=== PATIENT | male | born 1935 | race Caucasian/White ===

== ENCOUNTER 2017-01-10 10:16 | Day surgery (SDC) | payer OTHER ==
--- NOTE | ~2017-01-10 | EGD ---
EGD REPORT [facility] [address] [id number] NAME: FRANCO PHAM : 37 STATUS : REG ER PAT#: [id number] AGE: 81 ADM/REG DATE : 01/10/17 MR#: [id number] REPORT SERV DATE: 01/10/17 DICTATED BY: TRACEE MENESES DATE: 01/10/17 REPORT STATUS : Draft TRANSCRIBED BY: [employer] DATE: 01/10/17 [facility] Patient Name: Franco Pham Date of : 1935 Attending MD: TRACEE MENESES MD Procedure Date No Time: 01/10/2017 Procedure: Upper GI endoscopy Indications: Foreign body in the esophagus Referring MD: MABEL HUSTON Medicines: Sedation Required Anesthesia Staff Assistance Complications: No immediate complications. Estimated blood loss: None. Procedure: Pre-Anesthesia Assessment: - ASA Grade Assessment: III - A patient with severe systemic disease. After obtaining informed consent, the endoscope was passed under direct vision. Throughout the procedure, the patient's blood pressure, pulse, and oxygen saturations were monitored continuously. The GIF [id number] was introduced through the mouth, and advanced to the duodenal bulb. The upper GI endoscopy was somewhat difficult due to presence of food. Successful completion of the procedure was aided by performing the maneuvers documented (below) in this report. The patient tolerated the procedure well. Findings: A benign-appearing, intrinsic moderate stenosis was found at the gastroesophageal junction and was traversed. A guidewire was placed and the scope was withdrawn. Dilation was performed with a Savary dilator with mild resistance at 45 Fr, mild resistance at 48 Fr and mild resistance at 51 Fr. Food was found in the middle third of the esophagus and in the lower third of the esophagus. Removal of food was accomplished. A small hiatus hernia was present. A mild post-ulcer deformity was found in the first part of the duodenum. Impression: - Benign-appearing esophageal stricture. Dilated. - Food in the middle third of the esophagus and in the lower third of the esophagus. Removal was successful. - Hiatus hernia. - Duodenal deformity. Recommendation: - Discharge patient to home. - Clear liquid diet today. - Continue present medications. EGD REPORT [address] [address] NAME: FRANCO PHAM : 37 STATUS : REG ER PAT#: [id number] AGE: 81 ADM/REG DATE : 01/10/17 MR#: [id number] REPORT SERV DATE: 01/10/17 DICTATED BY: TRACEE MENESES DATE: 01/10/17 REPORT STATUS : Draft TRANSCRIBED BY: [employer] DATE: 01/10/17 - Repeat the upper endoscopy in 2 weeks for retreatment. Procedure Code(s): --- Professional --- 15337, Esophagogastroduodenoscopy, flexible, transoral; with removal of foreign body 94410, Esophagogastroduodenoscopy, flexible, transoral; with insertion of guide wire followed by passage of dilator(s) through esophagus over guide wire Diagnosis Code(s): --- Professional --- K22.2, Esophageal obstruction T18.128A, Food in esophagus causing other injury, initial encounter K31.89, Other diseases of stomach and duodenum CPT copyright 2013 [employer]. All rights reserved. The codes documented in this report are preliminary and upon substation technician review may be revised to meet current compliance requirements. TRACEE MENESES MD 01/10/2017 6:48 PM This report has been signed electronically. Number of Addenda: 0 Note Initiated On: 01/10/2017 5:49 PM Scope Withdrawal Time 0 hours 0 minutes 0 seconds [address] [phone]
[~2017-01-10 10:16] MED LIST: ASABAYER PO; COSOPT OPH; LIPITOR80 MG PO; LOP25 PO; LOVENOX SC; NORV5 PO; ZESTRIL5 MG PO
[2017-01-10 13:09] LABS: BASOPHILS 0.3 %; BASOPHILS ABSOLUTE 0.02 10/3/uL (0.0-0.16); EOSINOPHILS 3.9 %; EOSINOPHILS ABSOLUTE 0.29 10/3/uL (0.0-0.53); ER CBC TAT 0 Hrs 03 Mins; HEMATOCRIT 40.9 % (40.0-51.0); HEMOGLOBIN 13.9 g/dL (13.6-17.8); IMMATURE GRANULOCYTES 0.3 %; IMMATURE GRANULOCYTES ABSOLUTE 0.02 10/3/uL (0.0-0.11); LYMPHOCYTES 27.2 %; LYMPHOCYTES ABSOLUTE 2.04 10/3/uL (0.67-4.30); MEAN CORPUSCULAR HEMOGLOB 29.6 pg (26.0-34.0); MONOCYTES 6.5 %; MONOCYTES ABSOLUTE 0.49 10/3/uL (0.21-1.20); NEUTROPHILS 61.8 %; NEUTROPHILS ABSOLUTE 4.65 10/3/uL (2.02-8.40); PLATELET COUNT 219 10/3/uL (150-400); RBC DISTRIBUTION WIDTH 13.2 % (12.0-16.0); WHITE BLOOD CELLS 7.5 10/3/uL (4.5-10.5)
[2017-01-10 13:14] LABS: MANUAL DIFF NO %
[2017-01-10 13:22] LABS: BUN (BLOOD UREA NITROGEN) 14 MG/DL (6-23); CHLORIDE, SERUM 111 MMOL/L (96-112); CO2 (CARBON DIOXIDE) 24 MMOL/L (24-34); CREATININE 1.17 MG/DL (0.70-1.30); GFR AFRICAN AMERICAN 68 ML/MIN (>=60); GFR NON AFRICAN AMERICAN 59 ML/MIN (>=60); GLUCOSE, SERUM 103 MG/DL (60-99); POTASSIUM, SERUM 4.5 MMOL/L (3.5-5.3); SODIUM, SERUM 143 MMOL/L (135-148)
[2017-01-10] MEDS ORDERED: VENTOLIN HFA PO (17:12)
[2017-01-10] MEDS ORDERED: [UNRECOGNIZED DRUG - OTHER] PO (17:12)
[2017-01-10] MEDS ORDERED: LISINOPRIL40 MG PO (17:13)
[2017-01-10] MEDS ORDERED: NORV5 PO (17:13)
[2017-01-10] MEDS ORDERED: ZOCOR40 PO (17:16)
[2017-01-10] MEDS ORDERED: SEROQUEL25 PO (17:17)
[2017-01-10] MEDS ORDERED: ASAB PO (17:17)
[2017-01-10] MEDS ORDERED: PROTONIX PO (17:17)
== END 2017-01-10 20:25 | disposition home or self-care (01) ==
LOC: ER 10:16 → GI 17:30
PROVIDERS: Internal Medicine Gastroenterology; Nurse Practitioner
PROC: 0DC38ZZ Extirpation of Matter from Lower Esophagus, Via Natural or Artificial Opening Endoscopic (ICD-10-PCS; 2017-01-10)
PROC: 0D748ZZ Dilation of Esophagogastric Junction, Via Natural or Artificial Opening Endoscopic (ICD-10-PCS; principal; 2017-01-10 18:03)
PROC: 0DC28ZZ Extirpation of Matter from Middle Esophagus, Via Natural or Artificial Opening Endoscopic (ICD-10-PCS; 2017-01-10 18:03)
DX: T17.228A Food in pharynx causing other injury, initial encounter (principal); I10 Essential (primary) hypertension; Z88.5 Allergy status to narcotic agent; Z88.8 Allergy status to other drugs, medicaments and biological substances; Z79.82 Long term (current) use of aspirin; Z79.899 Other long term (current) drug therapy
CPT/HCPCS: 71010; 74220; 80048; 85025; 93005; 96374; 99285; J1610; J2405